=== PATIENT | female | born 1990 ===

== ENCOUNTER → 2019-03-04 | Outpatient (CLI) | payer BC | END | disposition home or self-care (01) | LOC: LAB 11:40 → LAB SHORT 11:40 | PROVIDERS: Obstetrics & Gynecology | DX: Z34.02 Encounter for supervision of normal first pregnancy, second trimester (principal) | CPT/HCPCS: G0123 ==

== ENCOUNTER → 2019-07-20 | Outpatient (CLI) | payer BC | END | disposition home or self-care (01) | LOC: LAB SHORT 19:01 → LAB 19:01 | DX: Z34.03 Encounter for supervision of normal first pregnancy, third trimester (principal) | CPT/HCPCS: 87081; 87653 ==